=== PATIENT | male | born 1995 | race Caucasian/White ===

== ENCOUNTER 2022-08-23 12:58 | Emergency (ER) | payer OTHER ==
[~2022-08-23] VITALS: Ht 175.3 cm; Wt 95.3 kg
[2022-08-23 13:11] VITALS: BP 127/87
--- NOTE | 2022-08-23 16:05 | NUR ---
SEEN AND EVALUATED BY DR HARRIS, NEGATIVE COVID RESULT TEST. D/C TO [employer] OFFICERS IN STABLE CONDITION.
== END 2022-08-23 16:07 ==
LOC: ER 13:12
DX: J06.9 Acute upper respiratory infection, unspecified (principal); Z20.822 Contact with and (suspected) exposure to COVID-19
CPT/HCPCS: 99283; 87426; C9803